=== PATIENT | female | born 1980 | race American Indian/Alaskan Native ===

== ENCOUNTER 2018-12-07 18:56 | Emergency (ER) | payer OTHER ==
[2018-12-07 20:11] VITALS: RESP 16
--- NOTE | 2018-12-07 20:59 | ED PDOC ---
HPI: Abdomen Time Seen by Provider: 12/07/18 19:00 Chief Complaint (Nursing): Abdominal Pain Chief Complaint (Provider): Abdominal Pain History Per: Patient History/Exam Limitations: no limitations Onset/Duration Of Symptoms: Persistent Current Symptoms Are (Timing): Still Present Additional Complaint(s): 37 year old female arrives to ED for an evaluation of abdominal pain that radiates to her back. Patient states she is currently 26 weeks , . Upon review of old charts, patient was recently discharged this morning from OB unit and found not to be via urine dip and bedside US (i spoke w dr del toro attending in ob). Provider confronts patient about findings. Patient confirms that she was told she was not but states she knows she is pr egnant because she had a positive home test 3 months ago. She additionally reports normal menstruation cycle despite but did not get evaluated at the time. Patient states she has a pending appointment with [facility] on 12/18/18. Otherwise, she denies any urinary complaints, nausea, vomiting, or diarrhea. PCP: [facility] Past Medical History Reviewed: Historical Data, Nursing Documentation, Vital Signs Vital Signs: Last Vital Signs Temp 98.3 F 12/07/18 20:01 Pulse 83 12/07/18 20:01 Resp 16 12/07/18 20:01 BP 154/89 H 12/07/18 20:01 Pulse Ox 98 12/07/18 20:01 - Medical History PMH: No Chronic Diseases - Surgical History Surgical History: No Surg Hx - Family History Family History: States: Unknown Family Hx - Social History Current smoker - smoking cessation education provided: No Alcohol: None Drugs: Denies - Allergies Allergies/Adverse Reactions: Allergies Allergy/AdvReac Type Severity Reaction Status Date / Time No Known Allergies Allergy Verified 12/07/18 20:01 Review of Systems ROS Statement: Except As Marked, All Systems Reviewed And Found Negative Gastrointestinal: Positive for: Abdominal Pain. Negative for: Nausea, Vomiting, Diarrhea Genitourinary Female: Negative for: Dysuria, Hematuria Musculoskeletal: Positive for: Back Pain Physical Exam - Reviewed Nursing Documentation Reviewed: Yes Vital Signs Reviewed: Yes - Physical Exam Appears: Positive for: Well, Non-toxic, No Acute Distress Head Exam: Positive for: ATRAUMATIC, NORMAL INSPECTION, NORMOCEPHALIC Skin: Positive for: Normal Color Eye Exam: Positive for: Normal appearance, EOMI, PERRL ENT: Positive for: Normal ENT Inspection Neck: Positive for: Normal, Supple Cardiovascular/Chest: Positive for: Regular Rate, Rhythm Respiratory: Positive for: Normal Breath Sounds. Negative for: Respiratory Distress Gastrointestinal/Abdominal: Positive for: Normal Exam, Soft. Negative for: Tenderness, Mass, Guarding, Rebound Back: Positive for: Normal Inspection. Negative for: L CVA Tenderness, R CVA Tenderness Extremity: Positive for: Normal ROM (upper/lower) Neurologic/Psych: Positive for: Alert, Oriented. Negative for: Motor/Sensory Deficits, Aphasia - ECG O2 Sat by Pulse Oximetry: 98 (RA) Pulse Ox Interpretation: Normal Medical Decision Making Medical Decision Making: Initial Impression: Abdominal pain (lower/pelvic) Initial Plan: * Beta-HCG * Urine C&S * UA Time: 2010 --Negative for . Beta-HCG: < 2.39 mIU/mL. --UA: (-) infection. Time: 2141 --Transvaginal US ordered to confirm (-) . Time: :06 Transvag US Findings: The uterus measures 9.1x5.5x6.3 cm. Normal cervix measuring 4 cm in length. Endometrium measures 7.9 mm without evidence of an intrauterine . Normal right ovary. 1 cm simple left ovarian cyst/follicle. No evidence of ovarian torsion. Impression: No intrauterine is seen. Unremarkable endometrium. Left ovarian simple cyst/follicle. 01:11 Patient US reviewed. Diagnosis is ovarian cyst. pt is aware of results and need to follo wup with pcp and with transportation supervisor. Patient is stable for discharge. ----- Scribe Attestation: Documented by Elena Becker, acting as a scribe for Carter Latham MD. Provider Scribe Attestation: All medical record entries made by the Scribe were at my direction and personally dictated by me. I have reviewed the chart and agree that the record accurately reflects my personal performance of the history, physical exam, medical decision making, and the department course for this patient. I have also personally directed, reviewed, and agree with the discharge instructions and disposition. Disposition - Clinical Impression Clinical Impression: Ovarian cyst - Patient ED Disposition Is Patient to be Admitted: No Counseled Patient/Family Regarding: Studies Performed, Diagnosis, Need For Followup - Disposition Disposition: Routine/Home Disposition Time: 01:00 Condition: IMPROVED Additional Instructions: follow up with your primary doctor in 1-2 days you are not take motrin for pain as needed return to the ED with any worsening or concerning symptoms Instructions: Ovarian Cyst (DC) Forms: [employer] ([place]i)
[2018-12-07 21:00] LABS: SQUAMOUS EPITHIAL 4 /hpf (0-5); URINE BACTERIA RARE (<OCC); URINE BILIRUBIN NEGATIVE (NEGATIVE); URINE BLOOD NEGATIVE (NEGATIVE); URINE CLARITY SLIGHTY-CLOUDY (Clear); URINE COLOR YELLOW (YELLOW); URINE GLUCOSE (UA) NEG (NEGATIVE); URINE LEUKOCYTE ESTERASE NEG Leu/uL (Negative); URINE PROTEIN NEGATIVE (NEGATIVE); URINE UROBILINOGEN 0.2-1.0 mg/dL (0.2-1.0)
[2018-12-08 01:17] VITALS: BP 146/99; PULSE 88; TEMP 98.5
[2018-12-08 02:23] VITALS: O2SAT 98
--- NOTE | 2018-12-08 11:23 | US ---
Date of service: 12/07/2018 HISTORY: Pelvic pain COMPARISON: None available. TECHNIQUE: Transvaginal pelvic ultrasound was performed. FINDINGS: UTERUS: Measures 9.1 x 5.5 x 6.3 cm. Anteverted, normal in size and appearance. No fibroid or other mass lesion seen. ENDOMETRIUM: Measures 8 mm in diameter. The central endometrial echo complex is normal in appearance. No evidence of intrauterine gestational sac. CERVIX: No cervical abnormality identified. RIGHT OVARY: Measures 2.1 x 1.6 x 1.9 cm. No solid mass. Normal flow. LEFT OVARY: Measures 3.0 x 2.2 x 1.8 cm. No solid mass. Normal flow. There is a 1.0 x 1.0 cm complicated cyst. FREE FLUID: No significant free fluid noted. OTHER FINDINGS: None. IMPRESSION: Unremarkable pelvic ultrasound. A preliminary report was provided by [facility].
== END 2018-12-08 01:22 | disposition home or self-care (01) ==
LOC: H.ER 18:56
DX: O34.80 Maternal care for other abnormalities of pelvic organs, unspecified trimester (principal); N83.299 Other ovarian cyst, unspecified side

== ENCOUNTER → 2018-12-07 | Emergency (ER) | payer OTHER | END | disposition home or self-care (01) | LOC: H.EROB2 17:15 | DX: O26.92 Pregnancy related conditions, unspecified, second trimester (principal); R10.2 Pelvic and perineal pain; M54.9 Dorsalgia, unspecified; R11.0 Nausea; R51 Headache; R06.02 Shortness of breath; R42 Dizziness and giddiness; Z3A.26 26 weeks gestation of pregnancy; O46.92 Antepartum hemorrhage, unspecified, second trimester ==

== ENCOUNTER 2019-03-11 18:30 | Emergency (ER) | payer OTHER ==
[2019-03-11 19:18] VITALS: BMI 34.5
[2019-03-12 01:26] VITALS: BP 151/96; PULSE 107; RESP 18; TEMP 97.7; O2SAT 100
== END 2019-03-11 19:30 | disposition home or self-care (01) ==
LOC: H.EROB2 18:30
DX: F45.8 Other somatoform disorders (principal); Z87.59 Personal history of other complications of pregnancy, childbirth and the puerperium